=== PATIENT | female | born 1980 | race Caucasian/White ===

== ENCOUNTER 2017-10-03 09:30 | Inpatient (IN) ==
[2017-10-05] MEDS ORDERED: Metoprolol Tartrate 25 MG Tablet PO SCH (08:30)
[2017-10-05] MEDS ORDERED: Chlorhexidine Gluconate 2% 1 Pack (2 Cloths) TOPICAL SCH (08:30)
[2017-10-05] MEDS ORDERED: Sodium Chlor 0.9% Inj 500 ML IV.SIG SCH (09:00)
[2017-10-05] MEDS ORDERED: Dexmedetomidine Inj 200 MCG/2 ML Vial ONE (09:53)
[2017-10-05] MEDS ORDERED: Ketamine Inj 50 MG/5 ML Syringe IV.PUSH ONE (09:54)
[2017-10-05] MEDS ORDERED: Bupivacaine/Epinephrine Inj 0.25% 50 ML Vial ONE (10:53)
[2017-10-05] MEDS: Vancomycin Inj 1,250 MG in Sodium Chlor 0.9% Inj 250 ML IV.SIG SCH ×2 (11:08→13:10)
[2017-10-05] MEDS ORDERED: Succinylcholine Inj 100 MG/5 ML Syringe IV.PUSH ONE (11:30)
[2017-10-05] MEDS ORDERED: Lidocaine PF 1% Inj 5 ML Syringe INFILTRATN ONE (11:30)
[2017-10-05] MEDS ORDERED: Ketorolac Inj 30 MG/ML (IVP) Vial IV.PUSH ONE (11:30)
[2017-10-05] MEDS ORDERED: Phenylephrine/NS 1000 MCG/10ML Syringe IV.PUSH ONE (11:30)
[2017-10-05] MEDS ORDERED: Sugammadex Inj 200 MG/2 ML Vial IV.PUSH ONE (12:51)
[2017-10-05] MEDS ORDERED: Promethazine 25 MG Supp RECTAL PRN (13:20)
[2017-10-05] MEDS ORDERED: Bisacodyl 10 MG Supp RECTAL PRN (13:20)
[2017-10-05] MEDS ORDERED: Post-op Orders (for Pharmacy) OTHER ONE (13:20)
[2017-10-05] MEDS ORDERED: Morphine Inj 4 MG/ML Vial ONE (13:49)
[2017-10-05] MEDS: Sod Chloride 0.9% Inj 1,000 ML IV.CONT SCH (16:45)
[2017-10-05] MEDS: HYDROmorphone PF Inj 2 MG/ML Vial IV.PUSH PRN (21:48)
[2017-10-05] MEDS: Senna/Docusate Sodium 8.6/50 MG Tablet PO SCH (21:48)
[2017-10-06] MEDS: Sod Chloride 0.9% Inj 1,000 ML IV.CONT SCH ×3 (00:02→10:50)
[2017-10-06] MEDS: Senna/Docusate Sodium 8.6/50 MG Tablet PO SCH (08:50)
[2017-10-06] MEDS: HYDROmorphone PF Inj 2 MG/ML Vial IV.PUSH PRN (08:51)
[2017-10-06] MEDS ORDERED: Enoxaparin Inj 40 MG/0.4 ML Syringe SQ SCH (13:00)
--- NOTE | 2017-10-06 16:10 | P.PNGS ---
Subjective Interval history: Tolerating PO fluids Pain well controlled Physical Exam Vital signs: Vital Signs 10/05/17 20:00 10/06/17 00:00 10/06/17 04:00 Temperature 97.5 F L 97.6 F 97.7 F Pulse Rate 83 60 76 Respiratory Rate 17 16 17 Blood Pressure 105/74 105/56 L 100/57 L Pulse Oximetry 99 97 95 10/06/17 08:00 10/06/17 12:00 Temperature 98.1 F 97.7 F Pulse Rate 103 H 88 Respiratory Rate 17 16 Blood Pressure 124/68 113/56 L Pulse Oximetry 96 97 Intake & Output 10/05/17 10/06/17 10/06/17 18:59 06:59 18:59 Intake Total 2400.0 / 2400.0 1360 / 1360 1000 / 1000 Output Total 20 / 20 Balance 2380.0 / 2380.0 1360 / 1360 1000 / 1000 Weight 106.8 kg 113.8 kg Intake: IV 1625.0 / 1625.0 1000 / 1000 1000 / 1000 NS Inj 1,000 ML @ 100 mls/hr IV 1000 / 1000 1000 / 1000 .CONT .Q10H SHARAN Rx#:[id number] Ofirmev Inj 1,000 mg In 100 ml 100 / 100 @ 400 mls/hr IV.SIG AWNING MAKER AND INSTALLER SHARAN Rx#:[id number] LR 1000 mL Inj 1,000 ML @ 30 1000 / 1000 mls/hr IV.SIG .Q24H SHARAN Rx#: [id number] Vancomycin Inj 1,250 MG In NS 525.0 / 525.0 Inj 250 ML @ 262.5 mls/hr IV. SIG AWNING MAKER AND INSTALLER SHARAN Rx#:[id number] Oral 175 / 175 360 / 360 Anesthesia Amount 600 / 600 Output: Estimated Blood Loss 20 / 20 Other: # Voids 1 Weight On Admission 106.8 kg Narrative: GENERAL: NAD RESPIRATORY: No accessory muscle use GASTROINTESTINAL: Abdomen soft, normal post-op tenderness. Surgical incisions C/ D/I MUSCULOSKELETAL: Extremities without clubbing, cyanosis, or edema. Assessment and Plan - Plan 37yo F S/P failed RNY attempt and bowel reanastomosis -Increase diet to soft -Continue with frequent ambulation Code Status: Full Discussed Condition With: Patient and family at bedside Discharge Planning: D/C home today - Attending Attestation The exam, history, and the medical decision-making described in the above note were completed with the assistance of the mid-level provider. I reviewed and agree with the findings presented. I attest that I had a [id number] encounter with the patient on the same day, and personally performed and documented my assessment and findings in the medical record.
[2017-10-06] MEDS ORDERED: diphenhydrAMINE HCl 12.5 MG/5 ML Elixir UDC PO ONE (16:15)
[2017-10-06 17:10] VITALS: BP 138/81; PULSE 105; RESP 18; TEMP 98.1; O2SAT 100
--- NOTE | 2017-10-16 13:17 | MP ---
cc: Bebeto Fitch MD DATE OF OPERATION: 10/05/2017 PREOPERATIVE DIAGNOSIS: Morbid obesity with a body mass index of 42. POSTOPERATIVE DIAGNOSIS: Morbid obesity with a body mass index of 42. PROCEDURE PERFORMED: Attempt at gastric bypass unsuccessfully with a small bowel anastomosis. SURGEON: Bebeto Fitch MD ANESTHESIA: General endotracheal anesthesia. ESTIMATED BLOOD LOSS: Scant. FINDINGS: Fatty liver. Dense mesentery, making manipulation of the small bowel not possible. The bowel was divided at 40 cm and attempts at bringing up Franklin limbs were made unsuccessfully. As a result, the gastric bypass was not performed. SPECIMENS: None. COMPLICATIONS: None. DESCRIPTION OF PROCEDURE: The patient was brought to the operating room and placed on the operating table in supine position. Bilateral sequential insufflation devices were placed on the lower extremities. General anesthesia instituted. Antibiotics initiated. The abdomen was prepped and draped sterilely. A point 18 cm distal to the xiphoid in the midline anesthetized with 0.25% Marcaine with epinephrine. A skin incision was made. A 5 mm Optiview port placed under direct vision and pneumoperitoneum created. Under direct vision, 5 mm left upper quadrant, 12 mm left upper quadrant, 12 mm right upper quadrant and 5 mm right upper quadrant ports were placed. Prior to placement of all ports, the skin and peritoneum were anesthetized with 0.25% Marcaine with epinephrine. The patient's abdominal cavity was inspected. The patient was noted to have a thickened mesentery. The omentum was lifted into the upper abdomen and was split down the middle to create a path for the Franklin limb. The ligament of Treitz was identified and a distance of 40 cm distal identified. The small bowel was divided in this region using the [place] Flex stapler with vascular load reinforced with SeamGuard. Attempts at bringing up the distal segment were made. This was not possible due to the dense mesentery lining the small bowel. We could not bring the small bowel up to create a jejunojejunostomy in the usual area of 100 cm. As a result, the gastric bypass could not be performed. The small bowel was reconnected at the point of division and a stapled anastomosis was created in the usual manner, a [id number] functional end-to-end. The mesenteric defect was closed with 2-0 silk suture in a running manner. At this point, the operative field was inspected. Hemostasis was present. Evicel was placed over the staple line. CO2 was released. All ports were removed. All skin incisions closed with 4-0 Monocryl. The abdominal wall was cleaned and a sterile dressing placed. The patient was awakened and taken to the recovery room. MD FENG Mata/jen , 11:43 AM , 11:52 AM
== END 2017-10-06 17:14 | disposition home or self-care (01) ==
LOC: HSDI 10-05 07:22 → N07 10-05 14:36
PROVIDERS: ADMIT Surgery; ATTEND Surgery

== ENCOUNTER 2018-01-09 07:19 | Inpatient (IN) ==
[2018-01-09] MEDS ORDERED: Metoprolol Tartrate 25 MG Tablet PO ONE (08:00)
[2018-01-09] MEDS ORDERED: Chlorhexidine Gluconate 2% 1 Pack (2 Cloths) TOPICAL ONE (08:00)
[2018-01-09] MEDS ORDERED: Sodium Chlor 0.9% Inj 500 ML IV.CONT ONE (08:00)
[2018-01-09] MEDS ORDERED: Vancomycin Inj 1,250 MG in Sodium Chlor 0.9% Inj 250 ML IV.SIG SCH (09:00)
[2018-01-09] MEDS ORDERED: Bupivacaine/Epinephrine Inj 0.25% 50 ML Vial ONE (09:50)
[2018-01-09] MEDS ORDERED: Famotidine PF Inj 20 MG/2 ML Vial IV.PUSH ONE (10:15)
[2018-01-09] MEDS ORDERED: Lidocaine PF 1% Inj 5 ML Syringe OTHER ONE (10:51)
[2018-01-09] MEDS ORDERED: Phenylephrine/NS 1000 MCG/10ML Syringe IV.PUSH ONE (10:51)
[2018-01-09] MEDS ORDERED: Sugammadex Inj 200 MG/2 ML Vial IV.PUSH ONE (12:11)
[2018-01-09] MEDS ORDERED: *Ondansetron Inj 4 MG/2 ML Vial PERIprocedural Use ONLY ONE ×2 (13:09→13:48)
[2018-01-09] MEDS ORDERED: *Meperidine Inj 25 MG/ML Vial PERIprocedural Use ONLY ONE (13:09)
[2018-01-09] MEDS ORDERED: fentaNYL Citrate Inj 100 MCG/2 ML Ampul ONE ×2 (13:11)
[2018-01-09] MEDS ORDERED: *Promethazine Inj 25 MG/ML Vial PERIprocedural use ONLY ONE (13:31)
[2018-01-09] MEDS ORDERED: Morphine Inj 4 MG/ML Vial IV.PUSH PRN (13:37)
[2018-01-09] MEDS ORDERED: Acetaminophen-HYDROcodone 325/7.5 Liq 15 ML UDC PO PRN ×2 (13:52→13:53)
[2018-01-09] MEDS ORDERED: Ketorolac Inj 30 MG/ML (IVP) Vial IV.PUSH ONE (14:00)
[2018-01-09] MEDS ORDERED: Enoxaparin Inj 40 MG/0.4 ML Syringe SQ ONE (15:00)
[2018-01-09] MEDS: KCL 20 mEq/D5W/NaCl 0.45% Inj 1,000 ML IV.SIG SCH (17:44)
[2018-01-09] MEDS ORDERED: Artificial Tears Opth Drops 15 ML Bottle EACH EYE PRN (20:00)
[2018-01-09] MEDS: Morphine Inj 4 MG/ML Vial IV.PUSH PRN (22:14)
[2018-01-10] MEDS: Morphine Inj 4 MG/ML Vial IV.PUSH PRN ×3 (01:21→19:32)
[2018-01-10] MEDS: KCL 20 mEq/D5W/NaCl 0.45% Inj 1,000 ML IV.SIG SCH ×3 (01:22→19:35)
[2018-01-10] MEDS: Pantoprazole Inj 40 MG Vial IV.PUSH SCH (08:00)
[2018-01-10] MEDS: Enoxaparin Inj 40 MG/0.4 ML Syringe SQ SCH (08:00)
[2018-01-10] MEDS ORDERED: Scopalamine 1.5 MG Patch T-DERMAL SCH (10:00)
--- NOTE | 2018-01-10 10:47 | P.PNGS ---
Subjective Patient reports: no flatus, nausea (Pt denies, SOB, palpitations or chest pain. ) Physical Exam Vital signs: Vital Signs 01/09/18 13:02 01/09/18 13:15 01/09/18 13:30 Temperature 97.8 F Pulse Rate 107 H 97 H 98 H Respiratory Rate 20 18 17 Blood Pressure 115/78 113/80 101/60 Pulse Oximetry 94 L 100 97 01/09/18 13:45 01/09/18 14:00 01/09/18 15:00 Temperature 97.7 F Pulse Rate 90 85 90 Respiratory Rate 20 20 19 Blood Pressure 111/61 116/63 112/64 Pulse Oximetry 95 93 L 99 01/09/18 16:00 01/09/18 20:00 01/10/18 00:00 Temperature 98.1 F 98.6 F Pulse Rate 89 63 53 L Respiratory Rate 19 18 18 Blood Pressure 113/71 117/67 108/77 Pulse Oximetry 95 95 97 01/10/18 04:00 01/10/18 08:00 Temperature 98.0 F 98.4 F Pulse Rate 64 66 Respiratory Rate 18 17 Blood Pressure 113/62 109/61 Pulse Oximetry 95 92 L Intake & Output 01/09/18 01/10/18 01/10/18 18:59 06:59 18:59 Intake Total 2162.5 / 2162.5 1060 / 1060 Output Total 20 / 20 Balance 2142.5 / 2142.5 1060 / 1060 Weight 106.7 kg 106.8 kg Intake: IV 1362.5 / 1362.5 1000 / 1000 LR 1000 mL Inj 1,000 ML @ 30 1000 / 1000 mls/hr IV.CONT .Q24H ONE Rx#: [id number] D5W/1/2NS + KCL 20 mEq Inj 1, 1000 / 1000 000 ML @ 125 mls/hr IV.SIG .Q8H SHARAN Rx#:[id number] Vancomycin Inj 1,250 MG In NS 262.5 / 262.5 Inj 250 ML @ 250 mls/hr IV.SIG INDUSTRIAL AUTOMATION SPECIALIST SHARAN Rx#:[id number] Flagyl 500 MG Inj 100 ML @ 100 100 / 100 mls/hr IV.SIG INDUSTRIAL AUTOMATION SPECIALIST SHARAN Rx#: [id number] Oral 60 / 60 Anesthesia Amount 800 / 800 Output: Estimated Blood Loss 20 / 20 Other: # Voids 3 Weight On Admission 106.7 kg Narrative: GENERAL: SKIN: Warm and dry. HEAD: Normocephalic. EYES: No scleral icterus. No injection or drainage. NECK: Supple, trachea midline. No JVD or lymphadenopathy. CARDIOVASCULAR: Regular rate and rhythm without murmurs, gallops, or rubs. RESPIRATORY: Breath sounds equal bilaterally. No accessory muscle use. GASTROINTESTINAL: Abdomen soft, normal post operative tenderness, laparoscopic sites WNL, mildly distended. MUSCULOSKELETAL: No cyanosis, or edema. BACK: Nontender without obvious deformity. No CVA tenderness. Assessment and Plan - Plan POD #1 laproscopic sleeve gastrectomy Ambulate ad rey, start abdominal binder Improve nausea control, not tolerating clears currently Continue IVF, transition to oral pain meds when nausea controlled. Continue SCD's, Lovenox. Code Status: full Discussed Condition With: patient and family member Discharge Planning: Today if nausea controlled and tolerating PO
[2018-01-10 12:50] LABS: Baso % (Auto) 0.1 % (0.0-2.0); Hematocrit 37.7 % (35.0-46.0); Hemoglobin 12.9 gm/dL (11.6-15.3); Lymph # (Auto) 1.4 th/mm3 (1.0-4.8); Lymph % (Auto) 7.9 % (9.0-44.0); Mean Corpuscular HGB Conc 34.2 % (32.0-36.0); Mean Corpuscular Hemoglobin 29.1 pg (27.0-34.0); Mean Platelet Volume 8.8 fL (7.0-11.0); Mono % (Auto) 5.9 % (0.0-8.0); Neut # (Auto) 15.1 th/mm3 (1.8-7.7); Neut % (Auto) 86.1 % (16.0-70.0); Platelet Count 305 th/mm3 (150-450); Red Blood Count 4.44 mil/mm3 (4.00-5.30); Red Cell Distribution Width 13.7 % (11.6-17.2); White Blood Count 17.6 th/mm3 (4.0-11.0)
[2018-01-10 13:16] LABS: Alanine Aminotransferase 44 U/L (10-53); Albumin 3.6 g/dL (3.4-5.0); Anion Gap 6 meq/L (5-15); Aspartate Aminotransferase 22 U/L (15-37); Blood Urea Nitrogen 4 mg/dL (7-18); Calcium 7.7 mg/dL (8.5-10.1); Carbon Dioxide 24.8 meq/L (21.0-32.0); Chloride 105 meq/L (98-107); Glomerular Filtration Rate 87 mL/min (>89); Glucose,Random 126 mg/dL (74-106); Potassium 3.9 meq/L (3.5-5.1); Sodium 136 meq/L (136-145)
[2018-01-10 13:17] LABS: Alkaline Phosphatase 82 U/L (45-117)
[2018-01-10] MEDS ORDERED: Promethazine 12.5 MG Supp RECTAL ONE (13:31)
[2018-01-11] MEDS: KCL 20 mEq/D5W/NaCl 0.45% Inj 1,000 ML IV.SIG SCH ×2 (02:44→11:27)
[2018-01-11] MEDS: Pantoprazole Inj 40 MG Vial IV.PUSH SCH (09:34)
[2018-01-11] MEDS: Enoxaparin Inj 40 MG/0.4 ML Syringe SQ SCH (09:35)
--- NOTE | 2018-01-11 12:39 | P.DS ---
Date of admission: 01/10/18 14:14 Primary care physician: Mike Ortiz MD Attending physician on discharge: Bebeto Fitch Brief History from admission: Admission for laparoscopic sleeve gastrectomy, 23 hours ops. Pt experienced severe nausea in the 24 hours follow procedure, with intolerance of PO medication. Admitted for further care. No well controlled symptomatology, with appropriate intake of liquids. Discharge home. DS: Diagnosis - Discharge Diagnosis (1) S/P laparoscopic sleeve gastrectomy Status: Acute (2) Nausea Status: Acute DS: Summary Hospital Course: with minimal complication - Time Spent with Patient Total time spent providing and/or coordinating discharge services: Less than 30 minutes - Quality: Stroke Symptom Onset Unknown: No - Quality: VTE Is this test being ordered to rule out VTE?: No Deep Vein Thrombosis/Pulmonary Embolism Present on Admission: No Exam Vital signs: Vital Signs 01/10/18 16:00 01/10/18 20:00 01/11/18 00:00 Temperature 97.6 F 98.9 F 98.6 F Pulse Rate 70 85 95 H Respiratory Rate 17 15 16 Blood Pressure 129/74 126/59 L 130/68 Pulse Oximetry 98 95 96 01/11/18 08:00 Temperature 98.1 F Pulse Rate 73 Respiratory Rate 17 Blood Pressure 114/65 Pulse Oximetry 96 Intake & Output 01/10/18 01/11/18 01/11/18 18:59 06:59 18:59 Intake Total 1400 / 1400 2600 / 2600 1000 / 1000 Balance 1400 / 1400 2600 / 2600 1000 / 1000 Weight 116 kg Intake: IV 1100 / 1100 2000 / 2000 1000 / 1000 Ofirmev Inj 1,000 mg In 100 ml 100 / 100 @ 400 mls/hr IV.SIG DISTRIBUTION DESIGNER SHARAN Rx#:[id number] D5W/1/2NS + KCL 20 mEq Inj 1, 1000 / 1000 2000 / 2000 1000 / 1000 000 ML @ 125 mls/hr IV.SIG .Q8H SHARAN Rx#:[id number] Oral 300 / 300 600 / 600 Other: # Voids 4 3 Narrative: GENERAL: SKIN: Warm and dry. HEAD: Normocephalic. EYES: No scleral icterus. No injection or drainage. NECK: Supple, trachea midline. No JVD or lymphadenopathy. CARDIOVASCULAR: Regular rate and rhythm without murmurs, gallops, or rubs. RESPIRATORY: Breath sounds equal bilaterally. No accessory muscle use. GASTROINTESTINAL: Abdomen soft, normal post operative tenderness, laparoscopic sites WNL, mildly distended. MUSCULOSKELETAL: No cyanosis, or edema. BACK: Nontender without obvious deformity. No CVA tenderness. Results Procedures completed during hospitalization: none Labs on day of discharge: Labs from last 24 hours 01/10/18 01/10/18 12:15 12:15 WBC 17.6 H RBC 4.44 Hgb 12.9 Hct 37.7 MCV 85.0 MCH 29.1 MCHC 34.2 RDW 13.7 Plt Count 305 MPV 8.8 Neut % (Auto) 86.1 H Lymph % (Auto) 7.9 L Park % (Auto) 5.9 Eos % (Auto) 0.0 Baso % (Auto) 0.1 Neut # (Auto) 15.1 H Lymph # (Auto) 1.4 Park # (Auto) 1.0 H Eos # (Auto) 0.0 Baso # (Auto) 0.0 WBC Differential . Differential Comment Auto diff final Sodium 136 Potassium 3.9 Chloride 105 Carbon Dioxide 24.8 Anion Gap 6 BUN 4 L Creatinine 0.75 Estimated GFR 87 L Random Glucose 126 H Calcium 7.7 L Total Bilirubin 0.5 AST 22 ALT 44 Alkaline Phosphatase 82 Total Protein 7.0 Albumin 3.6 Discharge Plan - Discharge Disposition Patient Disposition: 01 Discharge Home - Discharge Condition Condition: Good - Discharge Order Discharge Orders: Discharge Order (Routine); Ordered 01/11/18 Ordered By: Marilin Teixeira - Physicians Team Primary Care Provider: Mike Ortiz Attending Provider: Bebeto Fitch - Rxs /Orders / Referrals /Forms Prescriptions: New metoclopramide HCl 5 mg/5 mL Solution 10 mg PO PRN PRN (Reason: Nausea) 2 Days Qty: 60 RF: 0 Continue methocarbamol 750 mg Tablet 1,500 mg PO TID pantoprazole 40 mg Tablet,Delayed Release (Dr/Ec) 40 mg PO HS Discontinued meloxicam 15 mg Tablet 15 mg PO DAILY Referrals: Mike Ortiz MD [Primary Care Provider] - See Instructions - Discharge Instructions Additional Instructions: Follow up as scheduled outpatient with DIPPER OPERATOR in one week.
[2018-01-11] MEDS ORDERED: Metoclopramide Liq 10 MG/10 ML UDC PO SCH (17:00)
--- NOTE | 2018-01-17 10:35 | MP ---
cc: Bebeto Fitch MD DATE OF OPERATION: 01/11/2018 PREOPERATIVE DIAGNOSIS: Morbid obesity with a body mass index of 44. POSTOPERATIVE DIAGNOSIS: Morbid obesity with a body mass index of 44. PROCEDURE: Laparoscopic vertical sleeve gastrectomy over a 37-[place] ViSiGi bougie. SURGEON: Bebeto Fitch MD NURSE EMERGENCY: Chaim Hanna MD. Dr. Hanna's assistance was necessary for the procedure due to the complexity of the procedure, Dr. Hanna assisted with manipulation and exposure during the procedure. The assistant boys track coach provided by [employer] was utilized at the back table for this procedure and managing the tremor. ANESTHESIA: General endotracheal anesthesia. ESTIMATED BLOOD LOSS: Scant. FINDINGS: Adhesions of omentum and small bowel to the abdominal wall fatty liver. On manipulation of the small bowel, it still appeared to be tethered to the retroperitoneum, making it unable to come up to create Franklin limb for a gastric bypass. SPECIMENS: None. COMPLICATIONS: None. PROCEDURE IN DETAIL: The patient was brought to the operating room and placed on the operating table in supine position, bilateral sequential inflation device placed on lower extremities. General anesthesia was instituted. Antibiotics was initiated. The abdomen was prepped and draped sterilely. A point 15 cm distal to the xiphoid in the midline was anesthetized with 0.25% Marcaine with epinephrine. A skin incision was made, 5-mm OptiView port placed under direct vision and pneumoperitoneum created. Under direct vision, three 5-mm left upper quadrant, a 15-mm right upper quadrant, 5-mm right upper quadrant ports placed. Prior to placement of all ports the skin and peritoneum were anesthetized with 0.25% Marcaine with epinephrine. Attention was focused on the adhesions in the left upper quadrant. This was taken down using blunt and sharp dissection. Care was taken not to injure the small bowel during this dissection. The omentum was then lifted into the upper abdomen. Attempts for manipulating the small bowel to create a Franklin limb for gastric bypass were made. This was unsuccessfully. As a result, a sleeve gastrectomy was performed. The patient was placed in reverse Trendelenburg position left side up, the [place]-Flex retractor was placed. The left lobe of the liver was retracted. The vasculature along the greater curvature of the stomach was using harmonic scalpel starting a distance 5-cm proximal to the pylorus and carried towards the angle of His. The angle of His was taken down bluntly. Posterior ligamentous attachments were sharply . A 37-[place] ViSiGi bougie was placed at the start of the case, was placed on suction. Division of the stomach started 5 cm proximal to the pylorus and carried towards the angle of His to completely excise approximately 80% of the stomach. This was performed using an [place] Flex stapler at the pylorus. The first firing was with a black load, followed by a green load and four gold loads. All staple loads were reinforced with SeamGuard. A distance of 2 cm was left from the angle incisura and the staple line and a distance of 1 cm left from the GE junction and the staple line. The pylorus was then occluded, methylene blue tinged saline was instilled. There was no evidence of extravasation. The gastrocolic ligament was then sutured to the posterior leaflet of the SeamGuard using a 2-0 Vicryl suture in a running manner. Bleeding points were controlled with Evicel. The excised stomach was removed from the peritoneal cavity through the 15-mm port site in an Endopouch. The fascia at the 15-mm port site was approximated with 0 Vicryl suture. The CO2 was then released, all ports were removed, all skin incisions closed with 4-0 Monocryl. The abdominal wall was cleaned. A sterile dressing was placed. The patient was awakened and taken to the recovery room. MD FENG Mata/neptali/daniel , 06:46 AM , 06:53 AM
== END 2018-01-11 13:51 | disposition home or self-care (01) ==
LOC: HSDC 07:19 → N07 07:19 → EDSTATUS 07:30
PROVIDERS: ADMIT Surgery; ATTEND Surgery